=== PATIENT | male | born 1965 | race American Indian/Alaskan Native ===

== ENCOUNTER 2019-04-15 14:53 | Outpatient (CLI) | payer BC ==
--- NOTE | 2019-04-15 16:31 | Ultrasound Report ---
ULTRASOUND RENAL INDICATION: CKD/N18.3Chronic kidney disease, stage 3 (moderate). COMPARISON: No relevant prior imaging study available. FINDINGS: RIGHT KIDNEY: Size: 9.9 cm. Echogenicity: Normal. Cortical thickness: Normal. Stones: None. Hydronephrosis: None. Cyst or mass: None. LEFT KIDNEY: Size: 10.6 cm. Echogenicity: Normal. Cortical thickness: Normal. Stones: None. Hydronephrosis: None. Cyst or mass: None. Urinary Bladder: No significant abnormality. Free Fluid: None. Additional Findings: None. IMPRESSION 1. No acute sonographic abnormality of the kidneys. Signer Name: Hill Connolly MD Signed: 04/15/2019 4:27 PM Workstation Name: [id number]
== END 2019-04-15 14:54 | disposition home or self-care (01) ==
LOC: US 14:53
PROVIDERS: ATTEND Internal Medicine Nephrology
DX: N18.3 Chronic kidney disease, stage 3 (moderate) (principal)
CPT/HCPCS: 76770